=== PATIENT | female | born 2000 | race Caucasian/White ===

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

== ENCOUNTER 2021-02-22 15:07 | Inpatient (IN) | payer OTHER ==
[~2021-02-22] VITALS: Ht 160 cm; Wt 48.2 kg
[~2021-02-22 15:07] MED LIST changes: +ZOFRAN ODT4 MG SL
[2021-02-22 15:11] VITALS: BP 124/71
[2021-02-22 15:54] LABS: BASO # 0.1 10*3/uL (0.0-0.1); BASO % 0.4 % (0.0-1.0); HEMATOCRIT 41.4 % (37.0-47.0); LYMPH # 1.2 10*3/uL (1.3-4.4); LYMPH % 8.7 % (27.0-41.0); MEAN CELL VOLUME 84.8 fl (81.0-99.0); MEAN CORPUSCULAR HGB 28.3 pg (27.0-31.0); MEAN CORPUSCULAR HGB CONC 33.3 g/dl (33.0-37.0); MEAN PLATELET VOLUME 10.3 fl (9.6-12.3); MONO # 0.6 10*3/uL (0.1-1.0); MONO % 4.1 % (3.0-9.0); NEUT # 11.9 10*3/uL (2.3-7.9); NEUT % 86.5 % (47.0-73.0); PLATELET COUNT AUTOMATED 373 10*3/uL (130-400); RED BLOOD COUNT 4.88 10*6/uL (4.10-5.10); RED CELL DISTRI WIDTH 12.8 % (0-14.5); WHITE BLOOD COUNT 13.7 10*3/uL (4.8-10.8)
[2021-02-22 16:00] VITALS: BP 123/87
[2021-02-22 16:12] LABS: ALBUMIN 4.1 gm/dl (3.1-4.5); ALKALINE PHOSPHATASE 90 U/L (45-117); BUN 12 mg/dl (7-24); CHLORIDE 107 mmol/L (98-107); CREATININE 0.72 mg/dL (0.55-1.02); LIPASE 74 U/L (73-393); POTASSIUM 3.4 mmol/L (3.5-5.1); SGOT/AST 13 IU/L (3-35); SGPT/ALT 18 U/L (12-78); SODIUM 135 mmol/L (136-145); TOTAL PROTEIN 8.6 gm/dL (6.4-8.2)
[2021-02-22 16:13] LABS: BETA-HCG, QUANT < 1.0 mIU/mL (1-3)
[2021-02-22 17:15] LABS: BILIRUBIN Negative (Negative); BLOOD Negative (Negative); CLARITY Clear (Clear); COLOR Yellow (Yellow); GLUCOSE Negative (Negative); KETONE 3+ (Negative); LEUKO ESTERASE Negative (Negative); NITRITE Negative (Negative)
[2021-02-22 17:24] LABS: URINE AMPHETAMINES < 1000 (1000ng/ml); URINE BARBITURATES < 200 (200ng/ml); URINE BENZODIAZEPINES < 200 (200ng/ml); URINE CANNABINOIDS (THC) > 50 (50ng/ml); URINE COCAINE > 300 (300ng/ml); URINE METHADONE < 300 (300ng/ml); URINE OPIATES < 300 (300ng/ml)
[2021-02-22 17:25] LABS: EPITHELIAL CELLS 16-20
[2021-02-22 17:26] LABS: URINE PHENCYCLIDINE < 25 (25ng/ml)
[2021-02-22 18:25] VITALS: BP 115/67
[2021-02-22 20:00] VITALS: BP 123/87
[2021-02-23] VITALS: BP 119/83
[2021-02-23 06:18] LABS: BASO % 0.3 % (0.0-1.0); EOS % 0.1 % (1.0-4.0); HEMATOCRIT 37.7 % (37.0-47.0); LYMPH # 1.8 10*3/uL (1.3-4.4); LYMPH % 15.8 % (27.0-41.0); MEAN CELL VOLUME 85.3 fl (81.0-99.0); MEAN CORPUSCULAR HGB 28.3 pg (27.0-31.0); MEAN CORPUSCULAR HGB CONC 33.2 g/dl (33.0-37.0); MEAN PLATELET VOLUME 10.6 fl (9.6-12.3); MONO # 0.8 10*3/uL (0.1-1.0); MONO % 6.6 % (3.0-9.0); NEUT # 8.8 10*3/uL (2.3-7.9); NEUT % 76.9 % (47.0-73.0); PLATELET COUNT AUTOMATED 329 10*3/uL (130-400); RED BLOOD COUNT 4.42 10*6/uL (4.10-5.10); RED CELL DISTRI WIDTH 12.8 % (0-14.5); WHITE BLOOD COUNT 11.5 10*3/uL (4.8-10.8)
[2021-02-23 06:49] LABS: ALBUMIN 3.8 gm/dl (3.1-4.5); BUN 10 mg/dl (7-24); CHLORIDE 107 mmol/L (98-107); CREATININE 0.68 mg/dL (0.55-1.02); POTASSIUM 3.3 mmol/L (3.5-5.1); SGOT/AST 13 IU/L (3-35); SGPT/ALT 15 U/L (12-78); SODIUM 135 mmol/L (136-145); TOTAL PROTEIN 7.5 gm/dL (6.4-8.2)
[2021-02-23 06:57] LABS: ALKALINE PHOSPHATASE 76 U/L (45-117)
[2021-02-23 08:00] VITALS: BP 107/62
[2021-02-23] MEDS ORDERED: ZOFRAN4 MG PO ×3 (11:53→13:31)
[2021-02-23] MEDS ORDERED: METHOCARBAMOL750 M1 PO ×3 (11:53→13:31)
[2021-02-23] MEDS ORDERED: HYDROXYZINE HCL25 MG PO ×3 (11:53→13:31)
[2021-02-23 12:00] VITALS: BP 129/84
== END 2021-02-23 13:33 | disposition home or self-care (01) | DRG 773 ==
LOC: ED 15:07 → 4E 17:43 → EDHOLD 17:43 → 4E 18:00
PROVIDERS: Emergency Medicine; Family Medicine; ADMIT Internal Medicine; ATTEND Internal Medicine
DX: F11.23 Opioid dependence with withdrawal (principal); E83.41 Hypermagnesemia; R82.4 Acetonuria; F14.10 Cocaine abuse, uncomplicated; R65.10 Systemic inflammatory response syndrome (SIRS) of non-infectious origin without acute organ dysfunction; E86.0 Dehydration; F12.10 Cannabis abuse, uncomplicated; Z83.3 Family history of diabetes mellitus; Z82.5 Family history of asthma and other chronic lower respiratory diseases

== ENCOUNTER 2021-07-04 09:18 | Emergency (ER) | payer OTHER ==
[~2021-07-04] VITALS: Wt 45.4 kg
[~2021-07-04 09:18] MED LIST changes: +HYDROXYZINE HCL25 MG PO; +METHOCARBAMOL750 M1 PO; +ZOFRAN4 MG PO
[2021-07-04 09:46] LABS: BILIRUBIN Negative (Negative); BLOOD 3+ (Negative); CLARITY Cloudy (Clear); COLOR Yellow (Yellow); GLUCOSE Negative (Negative); KETONE 2+ (Negative); LEUKO ESTERASE Trace (Negative); NITRITE Negative (Negative); SPECIFIC GRAVITY 1.025 (1.001-1.030)
[2021-07-04 10:03] LABS: HEMATOCRIT 41.8 % (37.0-47.0); MEAN CELL VOLUME 84.4 fl (81.0-99.0); MEAN CORPUSCULAR HGB 28.5 pg (27.0-31.0); MEAN CORPUSCULAR HGB CONC 33.7 g/dl (33.0-37.0); MEAN PLATELET VOLUME 11.1 fl (9.6-12.3); PLATELET COUNT AUTOMATED 308 10*3/uL (130-400); RED BLOOD COUNT 4.95 10*6/uL (4.10-5.10); RED CELL DISTRI WIDTH 13.5 % (0-14.5); WHITE BLOOD COUNT 12.8 10*3/uL (4.8-10.8)
[2021-07-04 10:11] LABS: BACTERIA 2+; MUCOUS 2+
[2021-07-04 10:19] LABS: ALBUMIN 4.3 gm/dl (3.1-4.5); ALKALINE PHOSPHATASE 83 U/L (45-117); BUN 12 mg/dl (7-24); CHLORIDE 110 mmol/L (98-107); CREATININE 0.91 mg/dL (0.55-1.02); LIPASE 49 U/L (73-393); POTASSIUM 3.6 mmol/L (3.5-5.1); SGOT/AST 14 IU/L (3-35); SGPT/ALT 17 U/L (12-78); SODIUM 141 mmol/L (136-145); TOTAL PROTEIN 8.7 gm/dL (6.4-8.2)
[2021-07-04 10:32] LABS: PLATELET SUFFICIENCY NORMAL (NORMAL); TOTAL CELLS COUNTED 100 #CELLS; VACUOLATION OF NEUTROPHILS SLIGHT
[2021-07-04 10:48] LABS: URINE AMPHETAMINES < 1000 (1000ng/ml); URINE BARBITURATES < 200 (200ng/ml); URINE BENZODIAZEPINES < 200 (200ng/ml); URINE CANNABINOIDS (THC) > 50 (50ng/ml); URINE COCAINE < 300 (300ng/ml); URINE METHADONE < 300 (300ng/ml); URINE OPIATES > 300 (300ng/ml)
[2021-07-04 10:53] LABS: URINE PHENCYCLIDINE < 25 (25ng/ml)
[2021-07-04] MEDS ORDERED: ZOFRAN4 MG PO (13:19)
== END 2021-07-04 13:30 | disposition home or self-care (01) ==
LOC: ED 09:18
PROVIDERS: Emergency Medicine
DX: K52.9 Noninfective gastroenteritis and colitis, unspecified (principal); Z20.822 Contact with and (suspected) exposure to COVID-19

== ENCOUNTER 2023-06-01 08:45 | Emergency (ER) | payer OTHER ==
[~2023-06-01] VITALS: Ht 251.4 cm; Wt 51.7 kg
[2023-06-01] MEDS ORDERED: VISTARIL25 M2 PO (09:14)
[2023-06-01] MEDS ORDERED: SEROQUEL XR300 MG PO (09:14)
[2023-06-01] MEDS ORDERED: BUPRENORPHINE-1 EAC2 SL (09:15)
[2023-06-01 10:07] LABS: BASO # 0.1 10*3/uL (0.0-0.1); BASO % 0.7 % (0.0-1.0); EOS # 0.3 10*3/uL (0.0-0.4); EOS % 3.4 % (1.0-4.0); HEMATOCRIT 43.6 % (37.0-47.0); LYMPH # 1.5 10*3/uL (1.3-4.4); MEAN CELL VOLUME 86.9 fl (81.0-99.0); MEAN CORPUSCULAR HGB 27.5 pg (27.0-31.0); MEAN CORPUSCULAR HGB CONC 31.7 g/dl (33.0-37.0); MEAN PLATELET VOLUME 9.9 fl (9.6-12.3); NEUT # 4.6 10*3/uL (2.3-7.9); NEUT % 62.5 % (47.0-73.0); PLATELET COUNT AUTOMATED 273 10*3/uL (130-400); RED BLOOD COUNT 5.02 10*6/uL (4.10-5.10); RED CELL DISTRI WIDTH 13.9 % (0-14.5); WHITE BLOOD COUNT 7.4 10*3/uL (4.8-10.8)
[2023-06-01 10:32] LABS: ALKALINE PHOSPHATASE 231 U/L (46-116); CHLORIDE 106 mmol/L (98-107); POTASSIUM 3.9 mmol/L (3.4-5.1); SGPT/ALT 251 U/L (10-49); TOTAL PROTEIN 8.5 gm/dL (6.0-8.0)
[2023-06-01 10:39] LABS: BETA-HCG, QUANT < 3.0 mIU/mL (3-10); BUN < 5 mg/dl (9-23)
[2023-06-01 11:18] LABS: BILIRUBIN 1+ (Negative); BLOOD Trace-Lysed (Negative); CLARITY Turbid (Clear); COLOR Dark Yellow (Yellow); GLUCOSE Negative (Negative); KETONE Trace (Negative); LEUKO ESTERASE 2+ (Negative); NITRITE Negative (Negative); SPECIFIC GRAVITY >= 1.030 (1.001-1.030)
[2023-06-01 11:25] LABS: URINE AMPHETAMINES Positive (1000ng/ml); URINE BARBITURATES Negative (200ng/ml); URINE BENZODIAZEPINES Negative (200ng/ml); URINE CANNABINOIDS (THC) Positive (50ng/ml); URINE COCAINE Positive (300ng/ml); URINE METHADONE Negative (300ng/ml); URINE OPIATES Negative (300ng/ml); URINE PHENCYCLIDINE Negative (25ng/ml)
[2023-06-01 11:32] LABS: WBC TNTC wbc/hpf (0-5)
[2023-06-01 11:33] LABS: BACTERIA 3+; EPITHELIAL CELLS 21-30
[2023-06-01] MEDS ORDERED: MACROBID100 M1 PO (11:34)
[2023-06-01] MEDS ORDERED: ONDANSETRON4 MG SL (11:34)
== END 2023-06-01 12:04 | disposition home or self-care (01) ==
LOC: ED 08:45
PROVIDERS: Internal Medicine
DX: N39.0 Urinary tract infection, site not specified (principal); R11.2 Nausea with vomiting, unspecified; F41.9 Anxiety disorder, unspecified; F31.9 Bipolar disorder, unspecified; Z79.899 Other long term (current) drug therapy

== ENCOUNTER 2023-08-02 19:34 | Emergency (ER) | payer OTHER ==
[~2023-08-02] VITALS: Ht 160 cm; Wt 59.0 kg
[~2023-08-02 19:34] MED LIST changes: +BUPRENORPHINE-1 EAC2 SL; +MACROBID100 M1 PO; +ONDANSETRON4 MG SL; +SEROQUEL XR300 MG PO; +VISTARIL25 M2 PO
[2023-08-02] MEDS ORDERED: AMOX-CLAV 875-1 EACH PO (20:03)
[2023-08-02 20:45] LABS: BILIRUBIN Negative (Negative); BLOOD Trace-Lysed (Negative); CLARITY Clear (Clear); COLOR Yellow (Yellow); GLUCOSE Negative (Negative); KETONE Negative (Negative); LEUKO ESTERASE 3+ (Negative); NITRITE Negative (Negative); SPECIFIC GRAVITY <= 1.005 (1.001-1.030); UROBILINOGEN 0.2 E.U./dl (0.0-1.0)
[2023-08-02 21:17] LABS: BACTERIA 1+; WBC 31-40 wbc/hpf (0-5)
== END 2023-08-02 22:53 | disposition home or self-care (01) ==
LOC: ED 19:34
PROVIDERS: Internal Medicine
DX: K02.9 Dental caries, unspecified (principal); K04.7 Periapical abscess without sinus; Z20.2 Contact with and (suspected) exposure to infections with a predominantly sexual mode of transmission; F41.9 Anxiety disorder, unspecified; F31.9 Bipolar disorder, unspecified; F17.210 Nicotine dependence, cigarettes, uncomplicated; Z79.899 Other long term (current) drug therapy

== ENCOUNTER 2024-03-01 17:57 | Emergency (ER) | payer OTHER ==
[~2024-03-01] VITALS: Ht 160 cm; Wt 63.5 kg
[~2024-03-01 17:57] MED LIST changes: +AMOX-CLAV 875-1 EACH PO
[2024-03-01] MEDS ORDERED: AMOX-CLAV 875-1 EACH PO (18:29)
== END 2024-03-01 18:39 | disposition home or self-care (01) ==
LOC: ED 17:57
DX: S61.012A Laceration without foreign body of left thumb without damage to nail, initial encounter (principal); E83.41 Hypermagnesemia; F41.9 Anxiety disorder, unspecified; F31.9 Bipolar disorder, unspecified; F14.10 Cocaine abuse, uncomplicated; F12.10 Cannabis abuse, uncomplicated; W54.0XXA Bitten by dog, initial encounter; Y93.89 Activity, other specified; Y92.89 Other specified places as the place of occurrence of the external cause; Y99.0 Civilian activity done for income or pay

== ENCOUNTER 2025-04-08 00:16 | Emergency (ER) | payer BC, OTHER ==
[~2025-04-08] VITALS: Ht 160 cm; Wt 69.4 kg
[2025-04-08] MEDS ORDERED: BENZOCAINE 20% 11.9 GM GEL T ONE (01:20)
[2025-04-08] MEDS ORDERED: ACETAMINOPHEN 325 MG TAB PO ONE (02:10)
== END 2025-04-08 02:58 | disposition home or self-care (01) ==
LOC: ED 00:16
DX: O26.892 Other specified pregnancy related conditions, second trimester (principal); K08.89 Other specified disorders of teeth and supporting structures; O99.342 Other mental disorders complicating pregnancy, second trimester; F31.9 Bipolar disorder, unspecified; Z86.19 Personal history of other infectious and parasitic diseases; Z87.440 Personal history of urinary (tract) infections; Z3A.24 24 weeks gestation of pregnancy